=== PATIENT | female | born 1965 | race Caucasian/White ===

== ENCOUNTER 2020-05-23 12:56 | Emergency (ER) | payer BC, OTHER ==
--- NOTE | 2020-05-23 13:05 | ED Lower Extremity ---
General Chief Complaint: Lower Extremity Stated Complaint: RT LEG INJ Source: patient, RN/MD, RN notes reviewed Exam Limitations: no limitations History of Present Illness Date Seen by Provider: May 23, 2020 Time Seen by Provider: 13:03 Initial Comments This patient is a 54-year-old female that [facility] after a fall walking out of her guarding she had. Patient complaining of right ankle pain. Patient states unable to stand or walk on her right leg. Due to the pain. Onset: just prior to arrival Pain/Injury Location: right ankle Method of Injury: fell Modifying Factors: Improves With Movement (causing increased pain) Allergies and Home Medications Allergies Coded Allergies: clarithromycin (Verified Allergy, Unknown, 05/23/20) Swelling/Flushing Patient Home Medication List Home Medication List Reviewed: Yes Review of Systems Constitutional: No no symptoms reported; see HPI; No chills, No diaphoresis, No dizziness, No fever, No malaise, No weakness, No weight gain, No weight loss, No other EENTM: No see HPI, No no symptoms reported, No ear discharge, No hearing loss, No ear pain, No blurred vision, No double vision, No eye pain, No tearing, No vision loss, No dental problems, No hoarseness, No mouth pain, No mouth swelling, No epistaxis, No nose congestion, No nose pain, No throat pain, No throat swelling, No other Respiratory: No no symptoms reported, No see HPI, No cough, No dyspnea on exertion, No hemoptysis, No orthopnea, No phlegm, No short of breath, No stridor, No wheezing, No other Cardiovascular: No no symptoms reported, No see HPI, No chest pain, No edema, No Hx of Intervention, No palpitations, No syncope, No vascular heart diseas, No other Gastrointestinal: No RUQ, No LUQ, No RLQ, No LLQ, No no symptoms reported, No see HPI, No abdominal pain, No constipation, No diarrhea, No dysphagia, No hematemesis, No heartburn, No jaundice, No loss of appetite, No melena, No nausea, No vomiting, No other Musculoskeletal: No no symptoms reported; see HPI; No back pain, No gout; joint pain, joint swelling; No muscle pain, No muscle stiffness, No muscle cramps, No muscle twitching, No muscle weakness, No neck pain, No other Skin: No no symptoms reported, No see HPI, No change in color, No change in hair/nails, No dryness, No hx of skin cancer, No lesions, No lumps, No pruritus, No rash, No other All Other Systems Reviewed Negative Unless Noted: Yes Past Thbdqxx-Fhgpko-Xfzexr Hx Patient Social History Recent Foreign Travel: No Contact w/Someone Who Travel: No Physical Exam Vital Signs Vital Signs - First Documented 05/23/20 13:08 Temp 35.9 Pulse 84 Resp 16 B/P (MAP) 122/81 (95) Pulse Ox 99 Capillary Refill : Height, Weight, BMI Height: '" Weight: lbs. oz. kg; BMI Method: General Appearance: WD/WN, no apparent distress Cardiovascular: normal peripheral pulses, regular rate, rhythm, no edema, no gallop, no JVD, no murmur Respiratory: chest non-tender, lungs clear, normal breath sounds, no respiratory distress, no accessory muscle use Ankles: right ankle bone tenderness, right ankle pain, right ankle soft tissue tenderness, right ankle swelling Progress/Results/Core Measures Results/Orders My Orders Orders - NIYA DUENAS MD Ankle 3 View Right (05/23/20 13:02) Ice: Apply To Affected Area (05/23/20 13:02) Hydrocodone/Apap 5/325 Tablet (Lortab 5 (05/23/20 13:45) Medications Given in ED Current Medications Medications Dose Ordered Sig/Nickolas Route Start Time Stop Time Status Last Admin Dose Admin Acetaminophen/ Hydrocodone Bitart 2 tab ONCE ONCE PO 05/23/20 13:45 05/23/20 13:46 05/23/20 13:37 2 TAB Vital Signs/I&O 05/23/20 13:08 Temp 35.9 Pulse 84 Resp 16 B/P (MAP) 122/81 (95) Pulse Ox 99 Progress Progress Note : Time: 13:42 Progress Note XRAy IMPRESSION: Acute obliquely oriented fracture of the distal fibula, nondisplaced. Patient was placed in a posterior splint and placed on crutches. We did discuss at length the different options. Patient lives in [place] and states her has called her primary care physician and get referral to orthopedics in [place]. Take hydrocodone as instructed for pain control. May also take Motrin as needed to help with pain and swelling. Keep foot elevated rest ice as instructed. Be nonweightbearing. Use crutches only. Follow-up with your orthopedics as scheduled. Departure Impression Primary Impression: Fractured lateral malleolus Disposition: 01 HOME, SELF-CARE Condition: Stable Departure-Patient Inst. Decision time for Depature: 13:43 Referrals: NO,LOCAL PHYSICIAN (PCP/Family) Primary Care Physician Patient Instructions: Ankle Fracture (DC) Add. Discharge Instructions: Take hydrocodone as instructed for pain control. May also take Motrin as needed to help with pain and swelling. Keep foot elevated rest ice as instructed. Be nonweightbearing. Use crutches only. Follow-up with your orthopedics as scheduled. Follow-up with Dr. Yemi Amaral in [place] orth[facility]. Phone number is [phone] All discharge instructions reviewed with patient and/or family. Voiced understanding. Scripts Hydrocodone/Acetaminophen (Hydrocodone-Acetamin 5-325 mg) 1 Each Tablet 1 EACH PO QID PRN for PAIN-SEVERE (8-10) for 7 Days, #14 TAB 0 Refills Prov: NIYA DUENAS MD 05/23/20 NIYA DUENAS MD May 23, 2020 13:05
--- NOTE | 2020-05-23 13:35 | Diagnostic Imaging Report ---
INDICATION: Fall with right ankle pain. TIME OF EXAM: 1:09 PM 3 views of the right ankle were obtained. FINDINGS: There is an obliquely oriented fracture through the distal fibula. No significant displacement or angulation is seen. Distal tibia appears to be intact. Ankle mortise is well maintained. Talar dome is smooth. There is a large plantar calcaneal spur present. There appears to be a large osteophyte on the lateral view at the dorsum of the midfoot. There is also small corticated osseous densities adjacent to the medial malleolus. These are likely chronic. IMPRESSION: Acute obliquely oriented fracture of the distal fibula, nondisplaced. Dictated by: Dictated on workstation # [id number]
[2020-05-23] MEDS ORDERED: HYDROcodone/APAP 5 MG/325 MG (LORTAB) TAB PO ONE (13:45)
[2020-05-23] MEDS ORDERED: ACHD5005 PO (13:45)
[2020-05-23 14:34] VITALS: BP 143/78
== END 2020-05-23 14:32 | disposition home or self-care (01) ==
LOC: ER FS 12:59
DX: S82.64XA Nondisplaced fracture of lateral malleolus of right fibula, initial encounter for closed fracture (principal); Z88.1 Allergy status to other antibiotic agents; W19.XXXA Unspecified fall, initial encounter
CPT/HCPCS: 29515; 73610